=== PATIENT | male | born 1970 | race Caucasian/White ===

== ENCOUNTER 2022-01-05 08:07 | Observation (INO) ==
[2022-01-05] MEDS ORDERED: Ondansetron 4 MG/2 ML VIAL IVP ONE (08:42)
[2022-01-05] MEDS ORDERED: 0.9 % Sodium Chloride 1,000 ML IVC ONE (08:42)
[2022-01-05 08:55] LABS: Basophils % 0.7 %; Eosinophils % 0.7 %; Hematocrit 41.5 % (37.5-50.1); Hemoglobin 14.3 g/dL (12.9-16.9); Immature Granulocytes % 0.3 % (0-4); Lymphocytes # 0.9 K/mcL (0.6-4.6); Lymphocytes % 14.5 %; Mean Corpuscular HGB Conc 34.5 g/dL (31.6-35.5); Mean Corpuscular Hemoglobin 29.2 pg (28.0-33.3); Mean Corpuscular Volume 84.9 fL (83.0-100.0); Mean Platelet Volume 9.3 fL (9.4-12.4); Monocytes # 0.9 K/mcL (0.0-1.3); Monocytes % 14.2 %; Neutrophils # 4.3 K/mcL (1.6-8.9); Platelet Count 190 K/mcL (140-400); Red Blood Count 4.89 M/mcL (4.19-5.50); Red Cell Distribution Width 11.9 % (11.5-14.5); Segmented Neutrophils % 69.6 %; White Blood Count 6.1 K/mcL (4.3-11.1)
[2022-01-05 09:17] LABS: Alanine Aminotransferase 79 Units/L (7-52); Albumin 4.4 g/dL (3.5-5.7); Albumin/Globulin Ratio 1.8 (1.1-2.2); Alkaline Phosphatase 43 Units/L (34-104); Aspartate Amino Transferase 69 Units/L (13-39); BUN/Creatinine Ratio 8 (6-26); Bilirubin,Total 1.7 mg/dL (0.3-1.0); Blood Urea Nitrogen 7 mg/dL (6-20); Calcium 9.2 mg/dL (8.6-10.3); Carbon Dioxide 23 mEq/L (23-29); Chloride 87 mEq/L (98-107); Globulin 2.5 g/dL (2.4-3.5); Glucose 84 mg/dL (70-105); Lipase 19 Units/L (11-82); Magnesium 1.7 mg/dL (1.6-2.6); Osmolality,Calculated 253 (280-300); Potassium 3.6 mEq/L (3.5-5.1); Sodium 123 mEq/L (136-145); Total Protein 6.9 g/dL (6.4-8.9)
[2022-01-05 09:52] LABS: Influenza A PCR Negative (Negative); Influenza B PCR Negative (Negative); Resp. Syncytial Virus PCR Negative (Negative)
[2022-01-05 10:20] LABS: Ethanol < 10 mg/dL (Less than 10)
[2022-01-05 10:23] LABS: SARS-CoV-2 by PCR (In House) Negative (Negative)
[2022-01-05 10:41] LABS: Bilirubin,Urine Negative (Negative); Blood,Urine Negative (Negative); Clarity,Urine Clear (Clear); Color,Urine Light-Orange (Yellow); Glucose,Urine (UA) Normal (Normal); Ketones,Urine 40 mg/dL (Negative); Leukocyte Esterase,Urine Negative (Negative); Nitrite,Urine Negative (Negative); Protein,Urine 30 mg/dL (Neg-Trace); RBC,Urine 0-3 per hpf (0-3); Specific Gravity,Urine 1.013 (1.010-1.025); Squamous Epithelial Cell,Urine Few per hpf (None-Few); WBC,Urine 0-3 per hpf (0-3)
[2022-01-05] MEDS ORDERED: *HR* LORazepam 2 MG/ML VIAL IVP PRN ×3 (11:19)
[2022-01-05] MEDS ORDERED: Folic Acid 1 MG in 0.9 % Sodium Chloride 50 ML IVPB SCH (11:30)
[2022-01-05] MEDS ORDERED: Ibuprofen 400 MG TABLET PO PRN (11:54)
[2022-01-05] MEDS ORDERED: Ondansetron 4 MG/2 ML VIAL IVP PRN (11:54)
[2022-01-05] MEDS ORDERED: Naloxone 0.4 MG/ML INJ IVP PRN (11:54)
[2022-01-05] MEDS ORDERED: Melatonin 3 MG TABLET PO PRN (11:54)
[2022-01-05] MEDS: 0.9 % Sodium Chloride 1,000 ML IVC SCH ×2 (13:07→21:48)
[2022-01-05] MEDS: Thiamine (B-1) 100 MG TABLET PO SCH (13:07)
[2022-01-06 02:11] LABS: Hematocrit 43.7 % (37.5-50.1); Hemoglobin 14.9 g/dL (12.9-16.9); Mean Corpuscular HGB Conc 34.1 g/dL (31.6-35.5); Mean Corpuscular Hemoglobin 28.9 pg (28.0-33.3); Mean Corpuscular Volume 84.9 fL (83.0-100.0); Mean Platelet Volume 9.5 fL (9.4-12.4); Platelet Count 232 K/mcL (140-400); Red Blood Count 5.15 M/mcL (4.19-5.50); Red Cell Distribution Width 11.9 % (11.5-14.5); White Blood Count 6.3 K/mcL (4.3-11.1)
[2022-01-06 02:31] LABS: Calcium 9.4 mg/dL (8.6-10.3); Magnesium 2.1 mg/dL (1.6-2.6)
[2022-01-06 04:51] VITALS: TEMP 97.7; O2SAT 97
[2022-01-06] MEDS ORDERED: *HR* Labetalol 20 MG/4 ML SYRINGE IVP ONE (04:58)
[2022-01-06] MEDS: 0.9 % Sodium Chloride 1,000 ML IVC SCH (05:11)
[2022-01-06 06:03] VITALS: BP 152/97; PULSE 72
[2022-01-06] MEDS: Thiamine (B-1) 100 MG TABLET PO SCH (08:37)
[2022-01-06] MEDS ORDERED: Folic Acid 1 MG TABLET PO SCH (09:00)
== END 2022-01-06 11:47 | disposition home or self-care (01) ==
LOC: 2ANU 08:07 → EMEROOARM 08:07 → SUATTDRO 11:56 → 2ANU 12:50
PROVIDERS: ADMIT Hospitalist; ATTEND Student in an Organized Health Care Education/Training Program